=== PATIENT | male | born 1990 | race Caucasian/White ===

== ENCOUNTER 2017-08-16 00:52 | Emergency (ER) | payer OTHER, SELFPAY ==
[2017-08-16 00:59] VITALS: BP 139/85; PULSE 91; RESP 16; TEMP 36.8; O2SAT 99
--- NOTE | 2017-08-16 01:23 | HMH.EDALLER ---
ED Disposition Clinical Impression: Swelling of penis Disposition: Home, Self-Care Condition on Discharge: Good Instructions: DI for General Allergic Reactions Additional Instructions: use benadryl at night and claritin in day and see pcp or ed if continued issues - Critical Care Critical Care Time: No Attestation: On , the high probability of a clinically significant, sudden or life threatening deterioration of the following system(s) required my full and direct attention, intervention and personal management. The time I documented below is in addition to time spent performing reported procedures but includes the following listed in this critical care notation. Medical Decision Making - Medical Records Medical records reviewed: Yes: I reviewed the patient's medical records. Vital Signs: 08/16/17 00:59 Temperature 98.3 F Temperature Source Oral Pulse Rate [Right Brachial] 91 H Respiratory Rate 16 Blood Pressure [Right Arm] 139/85 Blood Pressure Mean [Right Arm] 103 Blood Pressure Source [Right Arm] Automatic Cuff Blood Pressure Position [Right Arm] Sitting 02 Sat by Pulse Oximetry 99 Oxygen Delivery Method Room Air - Mandeep Inquiry Pt receiving controlled substance: No Allergic React/Insect Bite HPI - General Chief complaint: Allergic Reaction Stated complaint: Thinks he's having an allergic reaction Time Seen by Provider: 08/16/17 01:23 Mode of Arrival - ED Triage: Ambulatory Source of Information: Patient, Relative, Medical Record Limitations: No Limitations - History of Present Illness HPI narrative: swollen glans penis over the last hr - no other c/o MD complaint: other Onset (ago): hour(s) Exposure: unknown Symptoms: other (penile swelling ) Allergies/Adverse Reactions: Allergies Allergy/AdvReac Type Severity Reaction Status Date / Time No Known Allergies Allergy Verified 08/16/17 01:03 Previous Allergic Reaction History: none Severity: moderate - Related Data Home Medications Medication Instructions Recorded Confirmed No Known Home Medications [No 08/16/17 08/16/17 Known Home Medications] [facility] History I have reviewed the patient's past medical history: Yes - *Social History Smoking Status: Current every day smoker Tobacco Type: cigarettes Alcohol Intake: never - Psychiatric History Expresses thoughts of harming self/others: None Suicide Plan Description: No Plan ROS Obtained: Yes All systems reviewed & no additional complaints - Constitutional Constitutional: Denies fever(s) - Eyes Eyes: Denies change in vision - ENT Ears, Nose, Mouth, and Throat: Denies sore throat - Cardiovascular Cardiovascular: Denies chest pain at rest - Respiratory Respiratory: No chest congestion - Gastrointestinal Gastrointestingal: Denies: abdominal pain - Genitourinary Male Genitourinary: Reports as per HPI, Denies hematuria, Denies testicular mass, Denies testicular pain, Denies urinary frequency, Reports other - Integumentary/Breasts Skin/Breast: Denies rash - Neurologic Neurologic: Denies dizziness Physical Exam - General General appearance: alert, in no apparent distress - Head Head exam: atraumatic - Eye Eye exam: Present: PERRL, EOMI - ENT ENT exam: Present: mucous membranes moist - Neck Neck exam: Present: trachea midline - Respiratory Respiratory exam: Absent: respiratory distress - Cardiovascular Cardiovascular exam: Present: regular rate - exam: Present: circumcised, other (glans penis swollen - no other lesions) - Neurological Exam Neurological exam: Present: alert, oriented X3, CN II-XII intact
--- NOTE | 2017-08-16 01:27 | ED_ITS ---
ED Disposition Clinical Impression: Swelling of penis Disposition: Home, Self-Care Condition on Discharge: Good Instructions: DI for General Allergic Reactions Additional Instructions: use benadryl at night and claritin in day and see pcp or ed if continued issues - Critical Care Critical Care Time: No Attestation: On , the high probability of a clinically significant, sudden or life threatening deterioration of the following system(s) required my full and direct attention, intervention and personal management. The time I documented below is in addition to time spent performing reported procedures but includes the following listed in this critical care notation. Medical Decision Making - Medical Records Medical records reviewed: Yes: I reviewed the patient's medical records. Vital Signs: 08/16/17 00:59 Temperature 98.3 F Temperature Source Oral Pulse Rate [Right Brachial] 91 H Respiratory Rate 16 Blood Pressure [Right Arm] 139/85 Blood Pressure Mean [Right Arm] 103 Blood Pressure Source [Right Arm] Automatic Cuff Blood Pressure Position [Right Arm] Sitting 02 Sat by Pulse Oximetry 99 Oxygen Delivery Method Room Air - Mandeep Inquiry Pt receiving controlled substance: No Allergic React/Insect Bite HPI - General Chief complaint: Allergic Reaction Stated complaint: Thinks he's having an allergic reaction Time Seen by Provider: 08/16/17 01:23 Mode of Arrival - ED Triage: Ambulatory Source of Information: Patient, Relative, Medical Record Limitations: No Limitations - History of Present Illness HPI narrative: swollen glans penis over the last hr - no other c/o MD complaint: other Onset (ago): hour(s) Exposure: unknown Symptoms: other (penile swelling ) Allergies/Adverse Reactions: Allergies Allergy/AdvReac Type Severity Reaction Status Date / Time No Known Allergies Allergy Verified 08/16/17 01:03 Previous Allergic Reaction History: none Severity: moderate - Related Data Home Medications Medication Instructions Recorded Confirmed No Known Home Medications [No 08/16/17 08/16/17 Known Home Medications] [facility] History I have reviewed the patient's past medical history: Yes - *Social History Smoking Status: Current every day smoker Tobacco Type: cigarettes Alcohol Intake: never - Psychiatric History Expresses thoughts of harming self/others: None Suicide Plan Description: No Plan ROS Obtained: Yes All systems reviewed & no additional complaints - Constitutional Constitutional: Denies fever(s) - Eyes Eyes: Denies change in vision - ENT Ears, Nose, Mouth, and Throat: Denies sore throat - Cardiovascular Cardiovascular: Denies chest pain at rest - Respiratory Respiratory: No chest congestion - Gastrointestinal Gastrointestingal: Denies: abdominal pain - Genitourinary Male Genitourinary: Reports as per HPI, Denies hematuria, Denies testicular mass , Denies testicular pain, Denies urinary frequency, Reports other - Integumentary/Breasts Skin/Breast: Denies rash - Neurologic Neurologic: Denies dizziness Physical Exam - General General appearance: alert, in no apparent distress - Head Head exam: atraumatic - Eye Eye exam: Present: PERRL, EOMI - ENT ENT exam:
== END 2017-08-16 01:37 | disposition home or self-care (01) ==
PROVIDERS: Emergency Provider Emergency Medicine
DX: N48.89 Other specified disorders of penis (principal); F17.210 Nicotine dependence, cigarettes, uncomplicated
CPT/HCPCS: 99282